=== PATIENT | female | born 1945 | race Caucasian/White ===

== ENCOUNTER 2023-06-18 14:37 | Observation (INO) | payer OTHER, MEDICARE ==
[~2023-06-18] VITALS: Ht 157.5 cm; Wt 42.2 kg
[2023-06-18] VITALS (13 sets, daily range): BP systolic 87–197; BP diastolic 44–115
[2023-06-18 15:19] LABS: BASO% 0.3 % (0-3); EOS% 24.2 % (0-8); HEMATOCRIT 37.8 % (37.0-47.0); HEMOGLOBIN 12.1 g/dl (12.0-16.0); IMMATURE GRANULOCYTES 0.1 % (0.0-5.0); LYMPH% 38.2 % (15-41); MEAN CELL VOLUME 94.5 fL CALC (80.0-100.0); MEAN CORPUSCULAR HGB 30.3 pG CALC (26.0-32.0); MONO% 5.8 % (2-13); NEUT# 2.7 thou/uL (2.00-7.15); NEUT% 31.4 % (42-76); RED CELL DISTRI WIDTH 12.7 % (11.5-15.5)
[2023-06-18 15:32] LABS: ALKALINE PHOSPHATASE 59 u/l (38-126); ANION GAP 8 (6-22 (CALC)); BILIRUBIN, TOTAL 0.4 mg/dL (0.02-1.3); BUN 20 mg/dL (8-23); BUN/CREATININE RATIO 21 (12-20 (CALC)); CALCULATED LDLCHOLESTEROL 109 mg/dL (62-129 (CALC)); CARBON DIOXIDE 32 mmol/l (22-30); CHLORIDE 104 mmol/l (95-108); CHOLESTEROL HDL RATIO 3.1 (<4.4 (CALC)); GFR FOR AFR.AMER. > 60 ML/MIN (>=60 (CALC)); GFR OTHER RACES 53 ML/MIN (>=60 (CALC)); HDL CHOLESTEROL 60 mg/dL (39.0-59.0); POTASSIUM 3.9 mmol/l (3.5-5.1); SGOT/AST 22 u/l (9-36); SODIUM 141 mmol/l (137-146); TOTAL CHOLESTEROL 187 mg/dl (0-199); TOTAL PROTEIN 6.8 g/dL (6.3-8.2); TOTAL TRIGLYCERIDES 87 mg/dl (0-149); VLDL CHOLESTROL 17 mg/dl (0-48 (CALC))
[2023-06-18 15:35] LABS: PROTHROMBIN TIME 9.9 SECONDS (9.0-12.5)
[2023-06-18] MEDS ORDERED: ADLT ASA LOW81 MG PO (15:51)
[2023-06-18] MEDS ORDERED: ALENDRONATE SOD70 MG PO (15:51)
[2023-06-18] MEDS ORDERED: LATANOPROST0.005 % OP (15:52)
[2023-06-18] MEDS ORDERED: ENSURE (15:52)
[2023-06-18] MEDS ORDERED: CLEARLAX17 GM/SCOO (15:52)
[2023-06-18] MEDS ORDERED: LEVOTHYROXIN25 MC1 PO (15:53)
[2023-06-18] MEDS ORDERED: REMERON15 MG PO (15:53)
[2023-06-18] MEDS ORDERED: MEMANTINE HYDRO10 MG (15:53)
[2023-06-18] MEDS ORDERED: SEROQUEL25 MG (15:54)
[2023-06-18] MEDS ORDERED: SEROQUEL50 MG PO (15:54)
[2023-06-18] MEDS ORDERED: SIMVASTATIN40 MG PO (15:54)
[2023-06-18] MEDS ORDERED: VITAMIN D PO (16:09)
[2023-06-18] MEDS ORDERED: TRAZODONE50 MG PO (16:09)
[2023-06-18 17:10] LABS: URINE BILIRUBIN - DIPSTICK Negative (NEGATIVE); URINE BLOOD DIPSTICK Negative (NEGATIVE); URINE GLUCOSE - DIPSTICK Negative (NEGATIVE); URINE KETONE Negative (NEGATIVE); URINE NITRITE - DIPSTICK Negative (Negative); URINE PROTEIN - DIPSTICK Negative (NEG-TRACE); URINE UROBILINOGEN - DIPSTICK 0.2 E.U./dL (0.2)
[2023-06-18 17:13] LABS: URINE COLOR Yellow; URINE LEUK ESTERASE Small (NEGATIVE)
[2023-06-18 17:23] LABS: URINE SQUAMOUS EPITHELIAL CELL FEW EPI/hpf (0-FEW)
[2023-06-19 04:32] VITALS: BP 123/72
[2023-06-19 07:02] VITALS: BP 113/71
[2023-06-19 08:23] LABS: HEMATOCRIT 38.4 % (37.0-47.0); HEMOGLOBIN 12.7 g/dl (12.0-16.0); MEAN CELL VOLUME 92.8 fL CALC (80.0-100.0); MEAN CORPUSCULAR HGB 30.7 pG CALC (26.0-32.0); MEAN CORPUSCULAR HGB CONC 33.1 g/dL CAL (32.0-36.0); RED BLOOD COUNT 4.14 mill/uL (4.20-5.60); RED CELL DISTRI WIDTH 12.5 % (11.5-15.5)
[2023-06-19 08:37] LABS: ALBUMIN 3.9 g/dL (3.2-5.0); ALKALINE PHOSPHATASE 57 u/l (38-126); ANION GAP 10 (6-22 (CALC)); BILIRUBIN, TOTAL 0.4 mg/dL (0.02-1.3); BUN 16 mg/dL (8-23); BUN/CREATININE RATIO 19 (12-20 (CALC)); CARBON DIOXIDE 28 mmol/l (22-30); CHLORIDE 105 mmol/l (95-108); CREATININE 0.8 mg/dL (0.5-1.0); GFR FOR AFR.AMER. > 60 ML/MIN (>=60 (CALC)); GFR OTHER RACES > 60 ML/MIN (>=60 (CALC)); POTASSIUM 3.9 mmol/l (3.5-5.1); SGOT/AST 22 u/l (9-36); SODIUM 139 mmol/l (137-146); TOTAL PROTEIN 6.4 g/dL (6.3-8.2)
[2023-06-19 11:22] VITALS: BP 148/107
== END 2023-06-19 13:52 | DRG 69 ==
LOC: ED 14:37 → ED-I 17:20 → ED 18:41 → MS2 18:42
PROVIDERS: Nurse Practitioner; ADMIT Student in an Organized Health Care Education/Training Program; ATTEND Student in an Organized Health Care Education/Training Program
DX: G45.9 Transient cerebral ischemic attack, unspecified (principal); G30.9 Alzheimer's disease, unspecified; F02.C0 Dementia in other diseases classified elsewhere, severe, without behavioral disturbance, psychotic disturbance, mood disturbance, and anxiety; I10 Essential (primary) hypertension; I25.10 Atherosclerotic heart disease of native coronary artery without angina pectoris; E03.9 Hypothyroidism, unspecified; E78.5 Hyperlipidemia, unspecified; F41.9 Anxiety disorder, unspecified; E04.2 Nontoxic multinodular goiter; H40.9 Unspecified glaucoma
CPT/HCPCS: J2060; Q9967